=== PATIENT | male | born 1985 | race Hispanic/Latino ===

== ENCOUNTER 2024-07-09 18:41 | Emergency (ER) | payer BC ==
[~2024-07-09] VITALS: Ht 175.3 cm; Wt 106.1 kg
[~2024-07-09 18:41] MED LIST: ACETAMINOPHEN-1 EAC4 PO; FENOFIBRATE145 MG PO; GLYBURIDE5 MG PO; METFORMIN HCL500 MG PO; NEXIUM20 MG PO; NOVOLIN R100 UNIT/1 SC
[2024-07-09] MEDS: ACETAMINOPHEN 325 MG TAB PO ONE (19:02)
[2024-07-09] MEDS: IBUPROFEN 400 MG TAB PO ONE (19:02)
[2024-07-09] MEDS ORDERED: TAMIFLU75 MG PO (19:40)
[2024-07-09] MEDS ORDERED: TYLENOL EXTRA500 MG PO (19:40)
[2024-07-09] MEDS ORDERED: IBUPROFEN800 MG PO (19:40)
[2024-07-09 19:46] VITALS: PULSE 117; RESP 20; TEMP 99
[2024-07-09 19:57] VITALS: BP 131/71; RESP 20; O2SAT 97
== END 2024-07-09 19:53 | disposition home or self-care (01) ==
LOC: FSED 18:46
DX: R50.9 Fever, unspecified (principal); J10.1 Influenza due to other identified influenza virus with other respiratory manifestations; E11.9 Type 2 diabetes mellitus without complications; R53.1 Weakness; R53.81 Other malaise
CPT/HCPCS: 99283